=== PATIENT | female | born 1960 ===

== ENCOUNTER → 2023-08-28 | Outpatient (CLI) | payer MEDICARE ==
--- NOTE | 2023-08-28 11:48 | BD ---
EXAMINATION TYPE: Axial Bone Density DATE OF EXAM: 08/28/2023 CLINICAL HISTORY: 62 years old Female. ICD-10 CODE: M85.88 OTHER DISRD OF BONE Height: 64.7in Weight: 222lb FRAX RISK QUESTIONS: Secondary Osteoporosis: RISK FACTORS HISTORY OF: Family History of Osteoporosis: yes Active: yes Postmenopausal woman: yes MEDICATIONS: Thyroid Medications: Which medication: Synthroid How Long: about 20 years Additional Medications: vitamin d Additional History: psoriatic arthritis EXAM MEASUREMENTS: Bone mineral densitometry was performed using the VENNCOMM System. Bone mineral density as measured about the Lumbar spine is: ----- L1-L4(G/cm2): 1.529 T Score Values are as follows: ----- L1: 1.4 ----- L2: 2.4 ----- L3: 3.1 ----- L4: 4.4 ----- L1-L4: 2.9 Z Score Values are as follows: ----- L1: 1.7 ----- L2: 2.7 ----- L3: 3.4 ----- L4: 4.7 ----- L1-L4: 3.2 First dexa at [facility] Bone mineral density about the R hip (g/cm2): 1.111 Bone mineral density about the L hip (g/cm2): 1.116 T Score values are as follows: -----R Neck: 0.5 -----L Neck: 0.6 -----R Total: 0.8 -----L Total: 0.9 Z Score values are as follows: -----R Neck: 1.2 -----L Neck: 1.2 -----R Total: 1.1 -----L Total: 1.1 FRAX%s: The graph provided illustrates a 5.5% chance for a major osteoporotic fx and a 0.1% chance fo r the hips probability for fx in 10 years time. IMPRESSION: Normal (Values between +1 and -1 indicate normal bone mass). Consider repeating this study in 5 year s or sooner if there is some new clinical indication. NOTE: T-SCORE=SD OF THE YOUNG ADULT MEAN.
--- NOTE | 2023-09-19 12:01 | MM ---
Reason for Exam: Screening (asymptomatic). Last mammogram was performed 1 year(s) and 1 month(s) ago. Patient History: Menarche at age 11. Patient has no children. Postmenopausal. Risk Values: Amairani 5 year model risk: 1.7%. NCI Lifetime model risk: 7.4%. Prior Study Comparison: 12/02/2020 Bilateral Diagnostic Mammogram, [facility]. 07/23/2022 Bilateral Screening Mammogram, [facility]. Tissue Density: The breast tissue is heterogeneously dense. This may lower the sensitivity of mammography. Findings: Analyzed By CAD. Asymmetry left breast posterior nipple line measuring 10 mm approximately 18 mm from the nipple on CC view. Right breast: There is no suspicious group of microcalcifications or new suspicious mass. Overall Assessment: Incomplete: need additional imaging evaluation, BI-RAD 0 Management: Diagnostic Breast Ultrasound of the left breast. [facility] will attempt to contact patient to return for supplemental views and ultrasound if indicated. Patient should continue monthly self-breast exams. A clinical breast exam by your physician is recommended on an annual basis. This exam should not preclude additional follow-up of suspicious palpable abnormalities. Note on Amairani scores and lifetime risk: 1. A Amairani score greater than 3% is considered moderate risk. If this is the case, consider specialist referral to assess eligibility for a risk reducing agent. 2. If overall lifetime risk for the development of breast cancer is 20% or higher, the patient may qualify for future screening with alternating mammogram and breast MRI. Electronically signed and approved by: Ced Carranza DO
== END | disposition home or self-care (01) ==
LOC: RADMAMWWP 10:23
PROVIDERS: ATTEND Family Medicine
DX: Z12.31 Encounter for screening mammogram for malignant neoplasm of breast (principal); M85.88 Other specified disorders of bone density and structure, other site; Z78.0 Asymptomatic menopausal state
CPT/HCPCS: 77063; 77067; 77080

== ENCOUNTER → 2023-09-30 | Outpatient (CLI) | payer MEDICARE ==
--- NOTE | 2023-09-30 15:06 | USB ---
Reason for Exam: Additional evaluation requested from abnormal screening. Patient History: Menarche at age 11. Patient has no children. Postmenopausal. Risk Values: Amairani 5 year model risk: 1.7%. NCI Lifetime model risk: 7.4%. Technique: Method: Targeted. Prior Study Comparison: 12/02/2020 Bilateral Diagnostic Mammogram, [facility]. 07/23/2022 Bilateral Screening Mammogram, [facility]. 08/28/2023 Bilateral MG 3D screening mammo w/cad, [facility]. Findings: The axilla of the left breast and the retroareolar of the left breast were scanned. No solid or cystic masses are identified. No abnormality to correlate with the mammographic findings. Overall Assessment: Negative, BI-RAD 1 Management: Diagnostic Mammogram of the left breast in 6 months. A clinical breast exam by your physician is recommended on an annual basis and results should be correlated with mammographic findings. This exam should not preclude additional follow-up of suspicious palpable abnormalities. Results were given to the patient verbally at the time of exam. Electronically signed and approved by: Jakob Maria D.O. Radiologis
== END | disposition home or self-care (01) ==
LOC: RADUSWWP 14:16
PROVIDERS: ATTEND Family Medicine
DX: R92.8 Other abnormal and inconclusive findings on diagnostic imaging of breast (principal); Z78.0 Asymptomatic menopausal state

== ENCOUNTER → 2025-05-03 | Outpatient (CLI) | payer MEDICARE ==
[2025-05-03 13:05] VITALS: BP 106/70; PULSE 73; RESP 16; TEMP 98.4
--- NOTE | 2025-05-03 14:03 | P.HPOB ---
History of Present Illness H&P Date: 05/03/25 Chief Complaint: Patient is here for her routine gynecologic exam. This is a 64-year-old -0-2-0 with an LMP of 2012. The patient has noticed a slight thin discharge without color or odor. She denies any vaginal or vulvar itching. She is otherwise without gynecologic complaints. She denies any postmenopausal bleeding. She has brought in records from Dr. 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 In the records she had a positive herpes simplex virus type II test on 08/16/2028. She has not had any outbreaks since then. She states she started seeing her now around 2019. She also had an abnormal Pap smear showing ASCUS with positive high-risk HPV testing (-16, -18) on 07/04/2021. She did have a colposcopy on 08/01/2021 which was negative and the ECC was negative. Pap smear cotest on 07/25/2022 was negative. The most recent Pap smear cotest was done here on 03/08/2024 and 1 was also negative. Review of Systems The patient has gained 10 pounds over the last year. She denies respiratory, cardiac, or G.I. problems. Past Medical History Past Medical History: Thyroid Disorder Additional Past Medical History / Comment(s): Seasonal allergies, hypothyroid, chronic back and sciatic nerve problems, and psoriatic arthritis. 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 History of Any Multi-Drug Resistant Organisms: None Reported Additional Past Surgical History / Comment(s): partial thyroidectomy, D&C, laparotomy with salpingectomy for an ectopic in 1988. Large benign ovarian cyst removed 1998. Colonoscopy 2011. VTP 1978. Past Anesthesia/Blood Transfusion Reactions: No Reported Reaction Past Psychological History: No Psychological Hx Reported Smoking Status: Former smoker, Vaper Past Alcohol Use History: Occasional (3 drinks per month.) Additional Past Alcohol Use History / Comment(s): Quit smoking cigarettes in 1998. Past Drug Use History: Marijuana Additional Drug Use History / Comment(s): Marijuana Gummies and vapes marijuana. She smoked marijuana in the . Additional History: He has been since July 2024. She is retired. - Past Family History Mother Family Medical History: AFIB, Cancer, Congestive Heart Failure (CHF), Hyperlipidemia, Hypertension Additional Family Medical History / Comment(s): . Multiple myeloma. Maternal uncle had stomach cancer. Father Family Medical History: Unable to Obtain, Cancer Additional Family Medical History / Comment(s): Her biological father had some type of cancer but type is uncertain. Brother(s) Additional Family Medical History / Comment(s): 2 brothers of fentanyl abuse. Medications and Allergies Home Medications Medication Instructions Recorded Confirmed Type Cholecalciferol (Vitamin D3) 125 mcg PO DAILY 03/16/24 05/03/25 History [Vitamin D3 (125 MCG = 5,000 IU)] Levothyroxine Sodium [Synthroid] 100 mcg PO DAILY 03/16/24 05/03/25 History Multivitamin [Multivitamins Adult 1 tab PO DAILY 03/16/24 05/03/25 History Gummies] Allergies Allergy/AdvReac Type Severity Reaction Status Date / Time amoxicillin Allergy Rash/Hives Unverified 05/03/25 12:56 latex Allergy Rash/Hives Unverified 05/03/25 12:56 Exam Vital Signs Temp Pulse Resp BP Pulse Ox 05/03/25 12:59 98.4 F 73 16 106/70 97 Intake and Output 05/02/25 05/03/25 05/03/25 22:59 06:59 14:59 Other: Weight 107.048 kg Height 5 feet 5 inches, weight 236 pounds, BMI 39.3. This is a well-developed well-nourished heavyset female who is alert and oriented times 3 in no acute distress. HEENT: Within normal limits. NECK: Supple without mass or thyromegaly. CHEST AND LUNGS: Clear to auscultation. HEART: Regular rate and rhythm. BREASTS: Are without mass or discharge. AXILLARY EXAM: Negative for adenopathy. BACK: Negative for CVA tenderness. ABDOMEN: Soft, nontender, without palpable masses. PELVIC EXAM: Normal external genitalia mild atrophy. Cervix and vagina appear normal atrophy. There is a small amount of slightly grayish discharge without odor. There is no cervical motion tenderness. there is no evidence of prolapse. The uterus is midposition, nongravid size and nontender. There are no palpable adnexal masses or tenderness. RECTAL EXAM: Refused by the patient. EXTREMITIES: Nontender. Records from Dr. Ma's office includes: 05/17/20US: fibroids, largest 4.8cm 05/29/20 pap neg, +endometrial cells 08/16/20 +HSV2 07/04/21 ASCUS +HR HPV(-16,-18)>08/01/21 colp neg, ECC neg 07/25/22 cotest neg IMPRESSION: 1. 64-year-old menopausal female with slight vaginal discharge noticed by the patient and slight discharge on exam today. 2. History of genital HSV type II with no recent outbreaks. 3. History of fibroid uterus as noted by a 2019 pelvic ultrasound with the largest measuring approximately 4.8 cm at that time. PLAN: 1. Given the 2 consecutive negative Pap smear cotest with the records she has brought in from Dr. Ma's office and no history of cervical neoplasia, Pap smears will be discontinued. 2. Self breast awareness was discussed with the patient. We have also discussed symptoms associated with inflammatory breast cancer. 3. Screening mammogram was recently done on 12/01/2024 and was benign. 4. Osteoporosis prevention was discussed. I have stressed the importance of adequate calcium, vitamin D and regular exercise. Recommended amounts of calcium and vitamin D were also discussed. She had a normal bone density test in 2022 and we will plan on repeating this in approximately 2028. 5. Weight control was discussed. I have discussed the importance of good nutrition, regular exercise, regular meals, and adequate fiber. 6. She was instructed to call if she is having genital HSV symptoms. 7. Affirm vaginitis panel was obtained from the vagina. 8. She was advised to return in one year for her annual well woman exam and as needed.
== END ==
LOC: WWCWWP 11:18
PROVIDERS: ATTEND Obstetrics & Gynecology
DX: Z01.419 Encounter for gynecological examination (general) (routine) without abnormal findings (principal); N89.8 Other specified noninflammatory disorders of vagina; F12.90 Cannabis use, unspecified, uncomplicated; Z86.018 Personal history of other benign neoplasm; Z78.0 Asymptomatic menopausal state; Z86.19 Personal history of other infectious and parasitic diseases; Z91.040 Latex allergy status; Z88.0 Allergy status to penicillin